=== PATIENT | male | born 2005 | race Caucasian/White ===

== ENCOUNTER 2024-05-20 20:52 | Emergency (ER) | payer SELFPAY ==
[~2024-05-20] VITALS: Ht 177.8 cm; Wt 81.6 kg
[2024-05-20 20:54] VITALS: BP 95/58; PULSE 79; RESP 18; TEMP 97.7; O2SAT 98
[2024-05-20 21:05] VITALS: BP 95/58; PULSE 79; RESP 18; TEMP 97.7; O2SAT 98
== END 2024-05-20 21:04 ==
LOC: MED 20:52
DX: Z02.89 Encounter for other administrative examinations (principal); V43.92XA Unspecified car occupant injured in collision with other type car in traffic accident, initial encounter; Y93.89 Activity, other specified; Y92.89 Other specified places as the place of occurrence of the external cause; Y99.8 Other external cause status
CPT/HCPCS: 99283